=== PATIENT | female | born 1955 | race Caucasian/White ===

== ENCOUNTER 2019-06-11 18:08 | Emergency (ER) | payer OTHER ==
[~2019-06-11] VITALS: Ht 162.6 cm; Wt 93.9 kg
[~2019-06-11 18:08] MED LIST: ALBUIS INH; AMLO5 PO; BENA20 PO; BUDE6HFA INH; Duoneb 2.5-0.5 M3 ML INH; HYDCHL12.5 PO; LEVSOD125 PO; LORA10 PO; METO25ER PO; METO50ER PO; MONT10T PO; Omeprazole20 M1; Prednisone20 MG PO; Zithromax250 MG PO
[2019-06-11 18:51] LABS: BASOPHILS ABSOLUTE AUTO 0.07 K/mm3 (0.00-0.23); BASOPHILS PERCENT AUTO 1 % (0-2); EOSINOPHILS ABSOLUTE AUTO 0.19 K/mm3 (0.00-0.68); EOSINOPHILS PERCENT AUTO 2 % (0-6); Hematocrit 38.8 % (33.0-51.0); Hemoglobin 12.9 g/dL (11.5-16.0); IMMATURE GRAN ABSOLUTE AUTO 0.02 K/mm3 (0.00-0.10); IMMATURE GRAN PERCENT AUTO 0 % (0-1); LYMPHOCYTES ABSOLUTE AUTO 1.78 K/mm3 (0.84-5.20); LYMPHOCYTES PERCENT AUTO 17 % (21-46); MONOCYTES ABSOLUTE AUTO 0.85 K/mm3 (0.16-1.47); MONOCYTES PERCENT AUTO 8 % (4-13); Mean Corpuscular HGB 30.4 pg (26.0-34.0); Mean Corpuscular HGB Conc 33.2 g/dL (31.5-36.5); Mean Corpuscular Volume 91 fL (80-100); Mean Platelet Volume 9.8 fL (9.1-12.4); NEUTROPHILS ABSOLUTE AUTO 7.35 K/mm3 (1.96-9.15); NEUTROPHILS PERCENT AUTO 72 % (41-73); Platelet Count 242 K/mm3 (150-400); RDW Coefficient Variation 13.3 % (11.7-14.2); RDW Standard Deviation 44.9 fL (35.1-46.3); Red Blood Cell Count 4.25 M/mm3 (3.80-5.20); White Blood Cell Count 10.26 K/mm3 (4.00-11.30)
[2019-06-11] MEDS ORDERED: FLUT1DIS2 INH (18:54)
[2019-06-11 19:19] LABS: Alanine Aminotransfer (ALT/SGP 29 U/L (12-78); Albumin, Blood 3.9 g/dL (3.4-5.0); Alk Phos 71 U/L (50-136); Anion Gap 6 mmol/L (6-16); Aspartate Aminotrans (AST/SGOT 18 U/L (12-37); Bilirubin, Total 0.5 mg/dL (0.1-1.0); Blood Urea Nitrogen 18 mg/dL (8-24); Bun/Creatinine Ratio 25.8 (12.0-20.0); CO2, Blood 29 mmol/L (21-32); Calcium, Blood 9.2 mg/dL (8.5-10.1); Chloride, Blood 102 mmol/L (98-108); Globulin, Blood 4.1 g/dL (2.2-4.0); Glomerular Filtration Rate >60 (60-); Glucose, Blood 113 mg/dL (70-99); Potassium, Blood 2.8 mmol/L (3.5-5.5); Sodium, Blood 137 mmol/L (136-145); Troponin I <0.015 ng/mL (0.000-0.040)
[2019-06-11] MEDS ORDERED: Aspirin EC81 MG PO (20:26)
[2019-06-11] MEDS ORDERED: Pepcid20 MG PO (20:26)
[2019-06-11] MEDS ORDERED: K-Dur20 MEQ PO (20:32)
== END 2019-06-11 21:01 | disposition home or self-care (01) ==
LOC: ER 18:08
PROVIDERS: Physician Assistant
DX: J44.9 Chronic obstructive pulmonary disease, unspecified (principal); I10 Essential (primary) hypertension; E03.9 Hypothyroidism, unspecified; Z79.899 Other long term (current) drug therapy
CPT/HCPCS: 36415; 71046; 80053; 84484; 85025; 93005; 93010; 96374; 99285-25; A9270-GY

== ENCOUNTER → 2019-10-24 | Outpatient (CLI) | payer OTHER ==
[~2019-10-24] MED LIST changes: +Aspirin EC81 MG PO; +FLUT1DIS2 INH; +K-Dur20 MEQ PO; +Pepcid20 MG PO
== END | disposition home or self-care (01) ==
LOC: LAB EV 12:19 → LAB SHORT 12:19
DX: R05 Cough (principal); Z20.828 Contact with and (suspected) exposure to other viral communicable diseases
CPT/HCPCS: U0003

== ENCOUNTER 2023-11-25 14:20 | Emergency (ER) | payer MEDICARE ==
[~2023-11-25] VITALS: Ht 165.1 cm; Wt 90.7 kg
[~2023-11-25 14:20] MED LIST changes: +ALLOPURINOL100 M1 PO; +HYDCHL25 PO; +TRAZ150T57 PO
[2023-11-25 14:38] VITALS: BP 157/124
[2023-11-25] MEDS ORDERED: CEFP200 PO (15:14)
[2023-11-25] MEDS ORDERED: PRED20 PO (15:14)
== END 2023-11-25 15:20 | disposition home or self-care (01) ==
LOC: ER 14:20
DX: R05.9 Cough, unspecified (principal); J44.9 Chronic obstructive pulmonary disease, unspecified; I10 Essential (primary) hypertension; E03.9 Hypothyroidism, unspecified; Z79.890 Hormone replacement therapy; Z79.899 Other long term (current) drug therapy; Z79.52 Long term (current) use of systemic steroids; Z79.82 Long term (current) use of aspirin
CPT/HCPCS: 71046; 99283-25

== ENCOUNTER 2024-11-04 10:19 | Day surgery (SDC) | payer MEDICARE, OTHER ==
[~2024-11-04] VITALS: Ht 165.1 cm; Wt 90.5 kg
[~2024-11-04 10:19] MED LIST changes: +CEFP200 PO; +PRED20 PO
[2024-11-04] MEDS ORDERED: BREO ELLIPTA 21 EAC1 INH (10:36)
[2024-11-04] MEDS ORDERED: EPINEPhrine HCl 1 MG / ML 30ML Vial ONE (10:42)
[2024-11-04] MEDS ORDERED: Lidocaine 2%-Epineph 1:200000 20 ML SDV ONE (10:43)
[2024-11-04] MEDS ORDERED: Tranexamic Acid 100 ML IV ONE (10:56)
[2024-11-04] MEDS ORDERED: Lidocaine HCl 4% 5 ML SDA ONE (11:29)
[2024-11-04] MEDS ORDERED: Rocuronium Bromide 10 MG/ML 5ML Injection IV ONE (11:34)
[2024-11-04] MEDS ORDERED: Sugammadex Sodium 200 MG/2ML SDV (100 MG/ML) ONE (11:47)
[2024-11-04] MEDS ORDERED: ePHEDrine Sulfate 50 MG/ML 1ML Injection ONE (11:58)
[2024-11-04] MEDS ORDERED: Ondansetron HCl 2 MG / ML 2ML Vial ONE (12:08)
[2024-11-04] MEDS ORDERED: Dexamethasone Sod Phos 10 MG/ML 1ML VIAL ONE (12:08)
--- NOTE | 2024-11-04 12:17 | NUR ---
11/04/24 1217 Neena Bo ALL 30ML OF EPI USED TO SOAK PLEDGETTS FOR USE DURING CASE.
[2024-11-04] MEDS ORDERED: FentaNYL Citrate 50 MCG/ML 2 ML Injection ONE (12:51)
[2024-11-04 14:52] VITALS: BP 142/71
--- NOTE | 2024-11-04 14:53 | NUR ---
11/04/24 5410 Kacey Yo PATIENT SITTING IN RECLINER DRINKING COFFEE AND APPLEJUICE AND EATING COOKIES WITHOUT ANY COMPLAINTS. DENIES NAUSEA. DENIES PAIN. SON SOPHIA AT CHAIRSIDE.
== END 2024-11-04 15:21 | disposition home or self-care (01) ==
LOC: ORSCSDS 10:19
PROVIDERS: Otolaryngology
PROC: 09DQ4ZZ Extraction of Right Maxillary Sinus, Percutaneous Endoscopic Approach (ICD-10-PCS; principal; 2024-11-04 12:00)
PROC: 09DR4ZZ Extraction of Left Maxillary Sinus, Percutaneous Endoscopic Approach (ICD-10-PCS; principal; 2024-11-04 12:00)
PROC: 09SM4ZZ Reposition Nasal Septum, Percutaneous Endoscopic Approach (ICD-10-PCS; principal; 2024-11-04 12:00)
PROC: 09BL8ZZ Excision of Nasal Turbinate, Via Natural or Artificial Opening Endoscopic (ICD-10-PCS; principal; 2024-11-04 12:00)
DX: J32.8 Other chronic sinusitis (principal); J34.2 Deviated nasal septum; I10 Essential (primary) hypertension; J45.909 Unspecified asthma, uncomplicated; E03.9 Hypothyroidism, unspecified; E66.9 Obesity, unspecified; Z68.33 Body mass index [BMI] 33.0-33.9, adult; Z79.899 Other long term (current) drug therapy
CPT/HCPCS: 88305; 88311; C2625; J0165; J1100; J2003; J2405; J2704; J3010; J7120